=== PATIENT | female | born 1965 | race Caucasian/White ===

== ENCOUNTER 2021-08-28 21:19 | Emergency (ER) | payer SELFPAY ==
[~2021-08-28] VITALS: Ht 162.6 cm; Wt 108.9 kg
[~2021-08-28 21:19] MED LIST: BSP10T PO; BUPR150T49 PO; CRS350T PO; ETD400T PO; HCT25T PO; HCTZ12.5T PO; HYDR118S10 PO; HYOS0.1216 PO; METR500T PO; NITR-65 PO; ONDA-42 SL; PNT40TEC PO; TRZ100T PO
[2021-08-28 21:30] VITALS: BP 156/119
--- NOTE | 2021-08-28 21:48 | ED Upper Extremity ---
General Chief Complaint: Laceration Stated Complaint: RIGHT INDEX FINGER LAC Source: patient Exam Limitations: no limitations (NESSA SMITH APRN) History of Present Illness Date Seen by Provider: Aug 28, 2021 Time Seen by Provider: 21:43 Initial Comments To ER with a right pointer finger laceration. She was trying to close a frozen piece of her gait this morning when it suddenly latched and pinched her finger. She has a skin avulsion of the pad of the finger which just quit bleeding just prior to arrival. Tetanus is not up-to-date. Onset: this morning Severity: mild Pain/Injury Location: right 2nd finger Method of Injury: direct blow Modifying Factors: Worse With Movement (NESSA SMITH APRN) Allergies and Home Medications Allergies Coded Allergies: No Known Drug Allergies (Unverified , 01/31/10) Patient Home Medication List Home Medication List Reviewed: Yes (NESSA SMITH APRN) Bupropion Hcl (Budeprion Sr) 150 Mg Tablet.sa, 150 MG PO, (Reported) Entered as Reported by: ANNE CRUZ on 12/06/113 Etodolac (Lodine) 400 Mg Tab, 400 MG PO BID Prescribed by: BECCA US on 08/29/11 1819 Hydrochlorothiazide (Hctz) 25 Mg Tab, 25 MG PO DAILY, (Reported) Entered as Reported by: JOSÉ MIGUEL DO on 08/29/11 1640 Hyoscyamine Sulfate (Levsin 0.125 Mg Tab) 0.125 Mg Tab, 1-2 EACH PO Q4HR PRN PRN for CRAMPS Prescribed by: CARLEE PAULINO on 11/28/13436 Metronidazole (Flagyl 500 Mg) 500 Mg Tab, 1 EACH PO BID, (Reported) Entered as Reported by: ANNE CRUZ on 12/06/11 221 Nitrofurantoin/Nitrofuran Mac (Macrobid) 100 Mg Capsule, 1 EACH PO BID Prescribed by: CARLEE PAULINO on 11/28/13436 Ondansetron Hcl (Zofran Oral Dissolve) 4 Mg Tab, 4 MG SL Q4H Prescribed by: CARLEE PAULINO on 11/28/13436 Pantoprazole Sodium (Protonix) 40 Mg Tablet.dr, 1 TAB PO DAILY Prescribed by: CRALEE PAULINO on 11/28/13436 Review of Systems Constitutional: see HPI EENTM: see HPI Respiratory: no symptoms reported Cardiovascular: no symptoms reported Genitourinary: no symptoms reported Musculoskeletal: no symptoms reported Skin: no symptoms reported Psychiatric/Neurological: No Symptoms Reported (NESSA SMITH APRN) Past Wvklfow-Uykpyn-Fjykny Hx Patient Social History Tobacco Use?: Yes Tobacco type used: Cigarettes Smoking Status: Current Everyday Smoker Use of E-Cig and/or Vaping dev: No Substance use?: No Alcohol Use?: No Pt feels they are or have been: No (NESSA SMITH APRN) Immunizations Up To Date Influenza Vaccine Up-to-Date: No; Not Current (NESSA SMITH APRN) Physical Exam Vital Signs Vital Signs - First Documented 08/28/21 21:30 Temp 36.6 Resp 18 B/P (MAP) 156/119 (131) Pulse Ox 97 O2 Delivery Room Air (CARLEE PAULINO DO) Vital Signs Capillary Refill : (NESSA SMITH APRN) Height, Weight, BMI Height: 5'4" Weight: 217lbs. oz. 98.369698kq; BMI Method:Stated General Appearance: WD/WN, no apparent distress HEENT: PERRL/EOMI, normal ENT inspection Respiratory: no respiratory distress, no accessory muscle use Gastrointestinal: normal bowel sounds, non tender, soft Elbow/Forearm: normal inspection, non-tender Wrist: Yes normal inspection, Yes non-tender Hand: Right, laceration (There is a skin avulsion about 2 mm wide and 1 cm long to the pad of the finger on the right without active bleeding. This was scrubbed with chlorhexidine/saline solution then pat it dry with gauze then antibiotic ointment applied to gauze.) Neurologic/Psychiatric: alert, normal mood/affect, oriented x 3 Skin: normal color, warm/dry (NESSA SMITH APRN) Progress/Results/Core Measures Results/Orders Medications Given in ED Current Medications Medications Dose Ordered Sig/Catarino Route Start Time Stop Time Status Last Admin Dose Admin Diphtheria/ Tetanus/Acell Pertussis 0.5 ml ONCE ONCE IM 08/28/21 22:00 08/28/21 22:01 DC 08/28/21 21:55 0.5 ML (LORACARLEE K DO) Vital Signs/I&O 08/28/21 21:30 Temp 36.6 Resp 18 B/P (MAP) 156/119 (131) Pulse Ox 97 O2 Delivery Room Air (CARLEE PAULINO DO) Departure Impression Primary Impression: Finger laceration Disposition: HOME, SELF-CARE Condition: Stable Departure-Patient Inst. Decision time for Depature: 21:46 (NESSA SMITH APRN) Referrals: [facility] (PCP/Family) Primary Care Physician Patient Instructions: Common Finger Injuries Add. Discharge Instructions: leave this dressing in place until Wednesday, then remove it by simply pulling on it. Return to ER for any worsening such as severe pain, swelling or redness or sign of infection. After Wednesday you can just put a Band-Aid over it. All discharge instructions reviewed with patient and/or family. Voiced understanding. ATTENDING PHYSICIAN NOTE: I WAS PHYSICALLY PRESENT ER PHYSICIAN WHEN THIS PATIENT WAS IN ER, BUT I WAS NOT INVOLVED IN ANY DECISION MAKING OR ANY CARE OF THIS PATIENT. (CARLEE PAULINO DO) NESSA SMITH APRN Aug 28, 2021 21:48 CARLEE PAULINO DO Aug 29, 2021 04:48
[2021-08-28] MEDS ORDERED: TETANUS,DIPTH,PERTUSS P/F (BOOSTRIX) 0.5 ML VIAL IM ONE (22:00)
== END 2021-08-28 22:08 | disposition home or self-care (01) ==
LOC: EDUNIT# 21:19 → ER 21:24
DX: S61.210A Laceration without foreign body of right index finger without damage to nail, initial encounter (principal); F17.210 Nicotine dependence, cigarettes, uncomplicated; Z23 Encounter for immunization; W23.1XXA Caught, crushed, jammed, or pinched between stationary objects, initial encounter
CPT/HCPCS: 90715